=== PATIENT | female | born 1975 | race Caucasian/White ===

== ENCOUNTER 2024-03-30 05:50 | Emergency (ER) | payer MEDICAID, OTHER ==
[~2024-03-30] VITALS: Ht 167.6 cm; Wt 64.0 kg
[2024-03-30] MEDS ORDERED: ISOVUE-370 76% 100ML VIAL As Ordered ONE (08:54)
[2024-03-30 09:04] LABS: BASO # 0.1 10^3/uL (0.0-0.2); BASO % 0.5 % (0.0-1.0); EOS # 0.2 10^3/uL (0.0-0.5); EOS % 1.8 % (0.0-3.0); HEMATOCRIT 41.5 % (36.0-47.0); HEMOGLOBIN 14.1 g/dl (12.0-15.5); LYMPH # 2.4 10^3/uL (1.5-5.0); LYMPH % 24.4 % (24.0-44.0); MEAN CORPUSCULAR HEMOGLOBIN 31.1 pg (27.0-33.0); MEAN CORPUSCULAR VOLUME 91.6 fl (80.0-96.0); MONO # 0.7 10^3/uL (0.0-0.8); MONO % 6.6 % (2.0-8.0); NEUTROPHILS # 6.5 10^3/uL (1.5-8.5); NEUTROPHILS % 66.3 % (36.0-66.0); PLATELET COUNT, AUTOMATED 246 10^3/uL (150-450); RED BLOOD COUNT 4.53 10^6/uL (4.00-5.40); WHITE BLOOD COUNT 9.9 10^3/uL (4.0-10.0)
[2024-03-30] MEDS: PERCOCET 5MG/325MG TAB PO ONE (09:06)
[2024-03-30] MEDS: CLINDAMYCIN 900 MG in IV 1 EA IV ONE (09:18)
[2024-03-30 09:28] LABS: ALBUMIN 3.8 G/DL (3.2-5.2); ALKALINE PHOSPHATASE 77 U/L (35-104); ALT/SGPT 10 U/L (7.0-40); AST/SGOT < 8 U/L (<34); BILIRUBIN,TOTAL 0.7 MG/DL (0.3-1.2); BLOOD UREA NITROGEN 17 MG/DL (9-23); CARBON DIOXIDE LEVEL 29 MMOL/L (20-31); CHLORIDE LEVEL 104 MMOL/L (98-107); CREATININE FOR GFR 0.64 MG/DL (0.55-1.30); GLOMERULAR FILTRATION RATE > 60.0 (>58); GLUCOSE, FASTING 101 MG/DL (60-100); POTASSIUM SERUM 4.9 MMOL/L (3.5-5.1); SODIUM LEVEL 141 MMOL/L (136-145); TOTAL PROTEIN 7.5 G/DL (5.7-8.2)
[2024-03-30 10:38] VITALS: BP 105/66; TEMP 97.5; O2SAT 97
[2024-03-30] MEDS ORDERED: CLEO300C2 PO (10:41)
[2024-03-30] MEDS ORDERED: OXYC1TAB23 PO (10:41)
== END 2024-03-30 10:53 | disposition home or self-care (01) ==
LOC: M ED 05:50
DX: K08.89 Other specified disorders of teeth and supporting structures (principal); R59.0 Localized enlarged lymph nodes; I10 Essential (primary) hypertension; F17.210 Nicotine dependence, cigarettes, uncomplicated; Z88.0 Allergy status to penicillin; Z79.2 Long term (current) use of antibiotics; Z79.899 Other long term (current) drug therapy
CPT/HCPCS: 70491; 80047; 80053; 85025; 87040; 96365; 99284; J0737; Q9967

== ENCOUNTER 2024-04-02 15:39 | Emergency (ER) | payer OTHER ==
[~2024-04-02] VITALS: Ht 167.6 cm; Wt 65.6 kg
[~2024-04-02 15:39] MED LIST: CLEO300C2 PO; OXYC1TAB23 PO
[2024-04-02 15:40] VITALS: BP 169/78; TEMP 98.6; O2SAT 99
== END 2024-04-02 23:40 | disposition left against medical advice (07) ==
LOC: M ED 15:39
DX: Z53.21 Procedure and treatment not carried out due to patient leaving prior to being seen by health care provider (principal)

== ENCOUNTER 2024-04-03 22:06 | Emergency (ER) | payer OTHER ==
[~2024-04-03] VITALS: Ht 167.6 cm; Wt 56.6 kg
[2024-04-04 00:40] VITALS: BP 150/90; TEMP 97; O2SAT 99
== END 2024-04-04 04:15 | disposition left against medical advice (07) ==
LOC: M ED 22:06
DX: Z53.21 Procedure and treatment not carried out due to patient leaving prior to being seen by health care provider (principal)

== ENCOUNTER 2024-04-07 18:30 | Inpatient (IN) | payer OTHER ==
[~2024-04-07] VITALS: Ht 167.6 cm; Wt 72.3 kg
[2024-04-07 20:03] VITALS: BP 151/76; TEMP 99.9; O2SAT 99
[2024-04-07 20:20] VITALS: TEMP 99.1
[2024-04-07 20:23] LABS: BASO % 0.2 % (0.0-1.0); EOS # 0.1 10^3/uL (0.0-0.5); EOS % 0.8 % (0.0-3.0); HEMATOCRIT 36.7 % (36.0-47.0); HEMOGLOBIN 12.1 g/dl (12.0-15.5); LYMPH # 1.7 10^3/uL (1.5-5.0); LYMPH % 17.5 % (24.0-44.0); MEAN CORPUSCULAR HEMOGLOBIN 30.7 pg (27.0-33.0); MEAN CORPUSCULAR VOLUME 93.1 fl (80.0-96.0); MONO # 0.5 10^3/uL (0.0-0.8); MONO % 5.6 % (2.0-8.0); NEUTROPHILS # 7.3 10^3/uL (1.5-8.5); NEUTROPHILS % 75.7 % (36.0-66.0); PLATELET COUNT, AUTOMATED 236 10^3/uL (150-450); RED BLOOD COUNT 3.94 10^6/uL (4.00-5.40); WHITE BLOOD COUNT 9.7 10^3/uL (4.0-10.0)
[2024-04-07 21:10] LABS: ALBUMIN 3.3 G/DL (3.2-5.2); ALKALINE PHOSPHATASE 72 U/L (35-104); ALT/SGPT < 9 U/L (7.0-40); AST/SGOT < 8 U/L (<34); BILIRUBIN,TOTAL 0.5 MG/DL (0.3-1.2); BLOOD UREA NITROGEN 15 MG/DL (9-23); CALCIUM LEVEL 8.9 MG/DL (8.5-10.1); CARBON DIOXIDE LEVEL 31 MMOL/L (20-31); CHLORIDE LEVEL 104 MMOL/L (98-107); CREATININE FOR GFR 0.87 MG/DL (0.55-1.30); GLOMERULAR FILTRATION RATE > 60.0 (>58); GLUCOSE, FASTING 103 MG/DL (60-100); MAGNESIUM LEVEL 1.8 MG/DL (1.8-2.4); PHOSPHORUS LEVEL 3.6 MG/DL (2.5-4.9); SODIUM LEVEL 143 MMOL/L (136-145); TOTAL PROTEIN 7.1 G/DL (5.7-8.2)
[2024-04-07 21:30] LABS: HCG, SERUM QUALITATIVE NEGATIVE (NEGATIVE)
[2024-04-07 21:39] LABS: HIV 1&2 SCREEN NEGATIVE (NEGATIVE)
[2024-04-07] MEDS ORDERED: ALPR1TAB3 PO (22:15)
[2024-04-07] MEDS ORDERED: HYDR50TA70 PO (22:15)
[2024-04-07] MEDS ORDERED: GABA-1490 PO (22:15)
[2024-04-07] MEDS ORDERED: VENTAER INH (22:15)
[2024-04-07] MEDS ORDERED: IBUP200T46 PO (22:16)
[2024-04-07] MEDS: NS 500 ML IV ONE (22:19)
[2024-04-07] MEDS ORDERED: HOME MED LIST COMPLETE! XX SCH (22:20)
[2024-04-07] MEDS ORDERED: ISOVUE-370 76% 100ML VIAL As Ordered ONE (22:59)
[2024-04-07 23:17] LABS: PARTIAL THROMBOPLASTIN TIME 36.5 SECONDS (24.8-34.2); PROTHROMBIN TIME 13.5 SECONDS (12.5-14.5)
[2024-04-07] MEDS: MOXIFLOXACIN HCL 400 MG in IV 1 EA IV ONE (23:42)
[2024-04-08] VITALS (15 sets, daily range): BP systolic 88–132; BP diastolic 50–76; TEMP 96.8–101.6; O2SAT 94–100
[2024-04-08] MEDS: NS (Normal Saline) 0.9% 1,000 ML IV SCH ×2 (00:49→08:15)
[2024-04-08] MEDS: ACETAMINOPHEN *IV* 1,000 MG in IV 1 EA IV ONE (00:57)
[2024-04-08] MEDS ORDERED: ALBUTEROL 90 MCG/ACT 8GM HFA INHALER INH PRN (02:25)
[2024-04-08] MEDS: GABAPENTIN 300 MG CAP PO SCH (02:42)
[2024-04-08] MEDS: ALPRAZolam 0.5 MG TAB PO SCH ×2 (02:42→20:48)
[2024-04-08] MEDS: hydrOXYzine 50 MG TAB PO SCH (02:42)
[2024-04-08] MEDS ORDERED: SUGAMMADEX SODIUM 500 MG/5 ML VIAL (BRIDION) As Ordered ONE (06:52)
[2024-04-08] MEDS ORDERED: ONDANSETRON 4MG 2ML VIAL As Ordered ONE (06:52)
[2024-04-08] MEDS ORDERED: dexmedeTOMIDine (4MCG/ML)200MCG/50ML BTL (PRECEDEX) As Ordered ONE (06:52)
[2024-04-08] MEDS ORDERED: ROCURONIUM BROMIDE 50MG/5ML VIAL As Ordered ONE (06:52)
[2024-04-08] MEDS ORDERED: propofoL 200 MG/20 ML VIAL As Ordered ONE (06:52)
[2024-04-08] MEDS ORDERED: ACETAMINOPHEN 1000MG/100ML IV BAG As Ordered ONE (06:52)
[2024-04-08] MEDS ORDERED: LIDOCAINE 2% 100MG/5ML SDV (FOR ANES.) As Ordered ONE (06:52)
[2024-04-08] MEDS ORDERED: MIDAZOLAM INJ 2MG/2ML VIAL As Ordered ONE (06:59)
[2024-04-08] MEDS ORDERED: fentaNYL 100 MCG/2 ML INJECTION As Ordered ONE (06:59)
[2024-04-08] MEDS: ALBUTEROL SULFATE 2.5MG/0.5ML INH NEB SOLN INH STA (07:05)
[2024-04-08] MEDS: LIDOCAINE 2% W/ EPINEPHRINE 1.7 ML DENTAL INJ As Ordered ONE (07:47)
[2024-04-08] MEDS ORDERED: ONDANSETRON 4MG 2ML VIAL IV PRN (08:15)
[2024-04-08] MEDS ORDERED: fentaNYL 100 MCG/2 ML INJECTION IV PRN (08:15)
[2024-04-08] MEDS ORDERED: HYDROmorphone HCL 2MG/ML 1ML VIAL As Ordered ONE (08:23)
[2024-04-08] MEDS: HYDROMORPHONE HCL 0.5 MG/ 0.5 ML SYRINGE IV PRN (09:11)
[2024-04-08] MEDS: oxyCODONE 5MG TAB PO PRN (09:12)
[2024-04-08] MEDS: PANTOPRAZOLE 40MG VIAL IV SCH (09:57)
[2024-04-08] MEDS: CLINDAMYCIN 600 MG in IV 1 EA IV SCH (10:40)
[2024-04-08] MEDS: PERCOCET 5MG/325MG TAB PO PRN (12:20)
[2024-04-08 12:23] LABS: BASO % 0.1 % (0.0-1.0); EOS % 0.1 % (0.0-3.0); HEMOGLOBIN 10.8 g/dl (12.0-15.5); LYMPH # 0.8 10^3/uL (1.5-5.0); LYMPH % 8.9 % (24.0-44.0); MEAN CORPUSCULAR HEMOGLOBIN 31.4 pg (27.0-33.0); MEAN CORPUSCULAR HGB CONC 33.8 g/dl (32.0-36.5); MONO # 0.2 10^3/uL (0.0-0.8); MONO % 2.1 % (2.0-8.0); NEUTROPHILS % 88.5 % (36.0-66.0); PLATELET COUNT, AUTOMATED 184 10^3/uL (150-450); RED BLOOD COUNT 3.44 10^6/uL (4.00-5.40); WHITE BLOOD COUNT 9.1 10^3/uL (4.0-10.0)
[2024-04-08 13:05] LABS: C REACTIVE PROTEIN QUANTITATIV 9.85 MG/DL (<1.0)
[2024-04-08 13:37] LABS: BLOOD UREA NITROGEN 15 MG/DL (9-23); CALCIUM LEVEL 7.6 MG/DL (8.5-10.1); CARBON DIOXIDE LEVEL 27 MMOL/L (20-31); CHLORIDE LEVEL 106 MMOL/L (98-107); CREATININE FOR GFR 0.82 MG/DL (0.55-1.30); GLOMERULAR FILTRATION RATE > 60.0 (>58); GLUCOSE, FASTING 190 MG/DL (60-100); POTASSIUM SERUM 4.1 MMOL/L (3.5-5.1); SODIUM LEVEL 140 MMOL/L (136-145)
[2024-04-08] MEDS: NS (Normal Saline) 0.9% 1,000 ML IV ONE ×2 (14:14→18:48)
[2024-04-08] MEDS: cefTRIAXone SOD 2 GM in DEXTROSE 5% (D5W) ADV/MINI-BAG 50 ML IV SCH (16:27)
[2024-04-08] MEDS: metroNIDAZOLE (FLAGYL) 500MG TABLET PO SCH (16:27)
[2024-04-08] MEDS: MORPHINE 2 MG/ML 1ML VIAL IV PRN (16:27)
[2024-04-08] MEDS ORDERED: CLINDAMYCIN 600 MG in IV 1 EA IV SCH (19:00)
[2024-04-08] MEDS: KETOROLAC 30 MG/ML 1ML VIAL IV ONE (20:47)
[2024-04-09 02:00] VITALS: BP 88/53; TEMP 98; O2SAT 95
[2024-04-09 05:03] VITALS: BP 106/59
[2024-04-09 05:59] VITALS: BP 120/78; TEMP 97.6; O2SAT 99
[2024-04-09 06:46] LABS: BASO % 0.1 % (0.0-1.0); EOS % 0.2 % (0.0-3.0); HEMATOCRIT 30.6 % (36.0-47.0); LYMPH # 1.7 10^3/uL (1.5-5.0); LYMPH % 19.4 % (24.0-44.0); MEAN CORPUSCULAR HEMOGLOBIN 30.4 pg (27.0-33.0); MEAN CORPUSCULAR HGB CONC 32.7 g/dl (32.0-36.5); MONO # 0.3 10^3/uL (0.0-0.8); MONO % 3.6 % (2.0-8.0); NEUTROPHILS # 6.5 10^3/uL (1.5-8.5); NEUTROPHILS % 76.1 % (36.0-66.0); PLATELET COUNT, AUTOMATED 183 10^3/uL (150-450); RED BLOOD COUNT 3.29 10^6/uL (4.00-5.40); WHITE BLOOD COUNT 8.5 10^3/uL (4.0-10.0)
[2024-04-09 07:11] LABS: C REACTIVE PROTEIN QUANTITATIV 8.68 MG/DL (<1.0)
[2024-04-09 07:12] LABS: BLOOD UREA NITROGEN 13 MG/DL (9-23); CALCIUM LEVEL 7.4 MG/DL (8.5-10.1); CARBON DIOXIDE LEVEL 26 MMOL/L (20-31); CHLORIDE LEVEL 107 MMOL/L (98-107); CREATININE FOR GFR 0.71 MG/DL (0.55-1.30); GLOMERULAR FILTRATION RATE > 60.0 (>58); GLUCOSE, FASTING 179 MG/DL (60-100); POTASSIUM SERUM 3.9 MMOL/L (3.5-5.1); SODIUM LEVEL 140 MMOL/L (136-145)
[2024-04-09] MEDS: ENOXAPARIN 40MG/0.4ML SYRINGE (J1650 PER 10MG) SC SCH (08:26)
[2024-04-09 12:00] VITALS: BP 101/59; TEMP 97.3; O2SAT 94
[2024-04-09] MEDS: CALCIUM GLUCONATE 1,000 MG in DEXTROSE 5% (D5W) MINI-BAG PLU 100 ML IV ONE (12:40)
[2024-04-09 20:01] VITALS: BP 107/69; TEMP 98.7; O2SAT 96
[2024-04-10] MEDS: ALPRAZolam 0.5 MG TAB PO ONE (01:47)
[2024-04-10 04:49] VITALS: BP 107/59; TEMP 97.6; O2SAT 96
[2024-04-10 05:44] VITALS: BP 134/68; O2SAT 95
[2024-04-10 06:31] LABS: BASO % 0.3 % (0.0-1.0); EOS # 0.1 10^3/uL (0.0-0.5); EOS % 1.5 % (0.0-3.0); HEMATOCRIT 29.4 % (36.0-47.0); HEMOGLOBIN 9.7 g/dl (12.0-15.5); LYMPH # 2.5 10^3/uL (1.5-5.0); LYMPH % 37.4 % (24.0-44.0); MEAN CORPUSCULAR HEMOGLOBIN 31.2 pg (27.0-33.0); MEAN CORPUSCULAR VOLUME 94.5 fl (80.0-96.0); MONO # 0.4 10^3/uL (0.0-0.8); NEUTROPHILS # 3.6 10^3/uL (1.5-8.5); NEUTROPHILS % 54.1 % (36.0-66.0); PLATELET COUNT, AUTOMATED 188 10^3/uL (150-450); RED BLOOD COUNT 3.11 10^6/uL (4.00-5.40); WHITE BLOOD COUNT 6.7 10^3/uL (4.0-10.0)
[2024-04-10 06:56] LABS: BLOOD UREA NITROGEN 16 MG/DL (9-23); C REACTIVE PROTEIN QUANTITATIV 4.04 MG/DL (<1.0); CALCIUM LEVEL 7.3 MG/DL (8.5-10.1); CARBON DIOXIDE LEVEL 28 MMOL/L (20-31); CHLORIDE LEVEL 111 MMOL/L (98-107); CREATININE FOR GFR 0.79 MG/DL (0.55-1.30); GLOMERULAR FILTRATION RATE > 60.0 (>58); GLUCOSE, FASTING 95 MG/DL (60-100); POTASSIUM SERUM 3.9 MMOL/L (3.5-5.1); SODIUM LEVEL 146 MMOL/L (136-145)
[2024-04-10] MEDS ORDERED: CEFD1CAP9 PO (12:51)
[2024-04-10] MEDS ORDERED: METR-265 PO (12:51)
== END 2024-04-10 09:00 | disposition left against medical advice (07) | DRG 114 ==
LOC: M MS4PR 18:59
PROVIDERS: ADMIT Student in an Organized Health Care Education/Training Program; ATTEND Student in an Organized Health Care Education/Training Program
PROC: 0W963ZX Drainage of Neck, Percutaneous Approach, Diagnostic (ICD-10-PCS; 2024-04-08)
PROC: 0CDXXZ1 Extraction of Lower Tooth, Multiple, External Approach (ICD-10-PCS; principal; 2024-04-08 07:30)
DX: K04.7 Periapical abscess without sinus (principal); L02.11 Cutaneous abscess of neck; K12.2 Cellulitis and abscess of mouth; F43.10 Post-traumatic stress disorder, unspecified; F41.1 Generalized anxiety disorder; F32.A Depression, unspecified; F17.210 Nicotine dependence, cigarettes, uncomplicated; Z79.899 Other long term (current) drug therapy; Z88.0 Allergy status to penicillin

== ENCOUNTER 2024-04-12 11:18 | Emergency (ER) | payer OTHER ==
[~2024-04-12] VITALS: Ht 167.6 cm; Wt 75.4 kg
[~2024-04-12 11:18] MED LIST changes: +ALPR1TAB3 PO; +CEFD1CAP9 PO; +GABA-1490 PO; +HYDR50TA70 PO; +IBUP200T46 PO; +METR-265 PO; +VENTAER INH
[2024-04-12 14:03] VITALS: BP 154/84; TEMP 98.5; O2SAT 98
== END 2024-04-12 14:05 | disposition home or self-care (01) ==
LOC: M ED 11:18
DX: K04.7 Periapical abscess without sinus (principal); F17.210 Nicotine dependence, cigarettes, uncomplicated; Z88.0 Allergy status to penicillin; Z79.1 Long term (current) use of non-steroidal anti-inflammatories (NSAID); Z79.51 Long term (current) use of inhaled steroids; Z79.899 Other long term (current) drug therapy